=== PATIENT | female | born 1985 | race Hispanic/Latino ===

== ENCOUNTER 2019-04-18 15:36 | Emergency (ER) | payer SELFPAY ==
[2019-04-18] MEDS ORDERED: LIDOCAINE 1% W/EPI 1:100,000 MDV 50 ML VIAL ONE (17:18)
[2019-04-18] MEDS ORDERED: TETANUS & DIPHTHERIA TOX,ADULT 0.5 ML VIAL ONE (17:18)
[2019-04-18] MEDS ORDERED: BUPIVACAINE 0.5% PF 10 ML VIAL ONE (17:18)
--- NOTE | 2019-04-18 18:01 | ER ---
Nurse's Notes [facility] Name: Zoie Gentile Age: 33 yrs Sex: Female : 1985 Arrival Date: 04/18/2019 Time: 15:39 Bed 26 Private MD: Diagnosis: Laceration without foreign body of right forearm Presentation: 04/18 15:59 Presenting complaint: Patient states: laceration to R arm, with a blade. Transition of care: patient was not received from another setting of care. Complicating Factors: There are no complicating factors for this patient. 15:59 Method Of Arrival: Ambulatory 15:59 Acuity: ILDA 4 aa5 16:55 Onset of symptoms was April 17, 2019. Risk Assessment: Do you want to hurt yourself or em someone else? Patient reports no desire to harm self or others. Initial Sepsis Screen: Does the patient meet any 2 criteria? No. Patient's initial sepsis screen is negative. Does the patient have a suspected source of infection? Yes: Skin breakdown/wound. Care prior to arrival: None. Triage Assessment: 16:03 General: Appears in no apparent distress. comfortable, Behavior is calm, cooperative, ch appropriate for age. Pain: Complains of pain in dorsal aspect of right forearm. 16:03 Injury Description: Laceration sustained to right arm and dorsal aspect of right ch forearm is clean, 2.6 to 7.5 cm long, bleeding moderately, was sustained occurred last night around 0300. 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 - Social history:: Smoking status: Patient uses tobacco products, smokes one-half pack cigarettes per day, Patient uses alcohol, on a daily basis. prior to arrival, 5-6 drinks. - Ebola Screening: : Patient negative for fever greater than or equal to 101.5 degrees Fahrenheit, and additional compatible Ebola Virus Disease symptoms Patient denies exposure to infectious person Patient denies travel to an Ebola-affected area in the 21 days before illness onset No symptoms or risks identified at this time. Screenin:55 Abuse screen: Denies threats or abuse. Nutritional screening: No deficits noted. em Tuberculosis screening: No symptoms or risk factors identified. Fall Risk None identified. Assessment: 16:55 General: Appears in no apparent distress. comfortable, Behavior is calm, cooperative, em Reports reports she was playing with box spring frame builder and cut her self on accident while she was drinking last night around 11pm, currently denies SI or HI, provider at bedside. Pain: Complains of pain in dorsal aspect of right forearm Pain currently is 8 out of 10 on a pain scale. Pain began. Neuro: Level of Consciousness is awake, alert, obeys commands, Oriented to person, place, time, situation. Cardiovascular: Capillary refill < 3 seconds Patient's skin is warm and dry. Respiratory: Airway is patent Respiratory effort is even, unlabored, Respiratory pattern is regular, symmetrical. Derm: Wound noted dorsal aspect of right forearm. Musculoskeletal: Capillary refill < 3 seconds, Range of motion: intact in all extremities. Injury Description: Laceration sustained to dorsal aspect of right forearm is clean, 2.6 to 7.5 cm long, bleeding moderately, was sustained 12-24 hours ago. 16:55 Reassessment: I agree with assessment completed by Juan Arevalo LVN . aa5 Vital Signs: 16:03 BP 132 / 76; Pulse 99; Resp 16; Temp 98.6; Pulse Ox 99% on R/A; Weight 95.25 kg; Height ch 5 ft. 6 in. (167.64 cm); Pain 8/10; 16:03 Body Mass Index 33.89 (95.25 kg, 167.64 cm) ED Course: 15:39 Patient arrived in ED. mr 16:03 Arm band placed on left wrist. Patient placed in an exam room. 16:46 Caleb Amezcua PA is PHCP. cp 16:46 Caleb Munoz MD is Attending Physician. cp 16:46 Karo Hodge RN is Primary Nurse. ca1 16:55 Patient has correct armband on for positive identification. Bed in low position. Call em light in reach. 17:29 Juan Arevalo LVN is Primary Nurse. em 17:30 Assist provider with laceration repair on dorsal aspect of right forearm that was em between 2.6 to 7.5 cm using sutures. Set up tray. Performed by Caleb SANTOS Dressed with 4X4s, Kerlix, Neosporin, Patient tolerated well. 17:52 Patient did not have IV access during this emergency room visit. em 18:53 Triage completed. aa5 Administered Medications: 17:10 Drug: Lidocaine-Epinephrine -1%: (1:100,000) 20 ml {Note: administered by PA. Caleb} em Volume: 20 ml; Route: Infiltration; 17:30 Follow up: Response: No adverse reaction; Pain is decreased em 17:10 Drug: Marcaine (0.5 %) 10 ml {Note: administered by PA. 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 Exp: em 01/03/2021. Lot #: [id number]. } Route: IM; Site: right deltoid; 17:45 Follow up: Response: Medication administered at discharge. em Outcome: 17:29 Discharge ordered by . 17:53 Discharged to home ambulatory. em 17:53 Condition: good 17:53 Discharge instructions given to patient, Instructed on discharge instructions, follow up and referral plans. medication usage, wound care, Demonstrated understanding of instructions, follow-up care, medications, wound care, Prescriptions given X 1. 17:53 Patient left the ED. em Signatures: Margaret Noyola, RN RN Martin, Deja Arevalo, Juan, [employer]ODU[employer] SALES REPRESENTATIVE [employer]ODU[employer] SALES REPRESENTATIVE em Adeola Romero RN RN aa5 Caleb Amezcua PA PA cp Acob, Cheryl, RN RN ca1 Corrections: (The following items were deleted from the chart) 16:04 16:03 Social history: Smoking status: Patient/guardian denies using tobacco, [facility]
--- NOTE | 2019-04-18 18:01 | EDPHYS ---
Physician Documentation [facility] Name: Zoie Gentile Age: 33 yrs Sex: Female : 1985 Arrival Date: 04/18/2019 Time: 15:39 Bed 26 Private MD: ED Physician Caleb Munoz HPI: 04/18 17:30 This 33 yrs old Female presents to ER via Ambulatory with complaints of cp Laceration To Arm. 17:30 The patient has a laceration related to: self inflicted occurred at home. cp 17:30 The laceration(s) is(are) located on the dorsal aspect of right forearm. Onset: The cp symptoms/episode began/occurred last night. Patient admits to using razor to cut herself. Denies suicidal or homicidal ideations. Admits to drinking alcohol last night prior to cutting herself. 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 - Social history:: Smoking status: Patient uses tobacco products, smokes one-half pack cigarettes per day, Patient uses alcohol, on a daily basis. prior to arrival, 5-6 drinks. - Ebola Screening: : Patient negative for fever greater than or equal to 101.5 degrees Fahrenheit, and additional compatible Ebola Virus Disease symptoms Patient denies exposure to infectious person Patient denies travel to an Ebola-affected area in the 21 days before illness onset No symptoms or risks identified at this time. ROS: 17:35 Constitutional: Negative for body aches, chills, fever, poor PO intake. cp 17:35 Cardiovascular: Negative for chest pain. cp 17:35 Respiratory: Negative for cough, shortness of breath, wheezing. 17:35 Skin: Positive for laceration(s), of the dorsal aspect of right forearm. 17:35 Neuro: Negative for altered mental status, headache, numbness, weakness. 17:35 Psych: Negative for auditory hallucinations, visual hallucinations, homicidal ideation, suicide gesture, suicidal ideation. 17:35 All other systems are negative. Exam: 17:40 Constitutional: The patient appears in no acute distress, alert, awake, well developed, cp well nourished. 17:40 Head/Face: Normocephalic, atraumatic. cp 17:40 Skin: injury, laceration(s), the wound is approximately 8 cm(s), of the dorsal aspect of right forearm, that can be described as clean, linear, with mild bleeding. Vital Signs: 16:03 BP 132 / 76; Pulse 99; Resp 16; Temp 98.6; Pulse Ox 99% on R/A; Weight 95.25 kg; Height ch 5 ft. 6 in. (167.64 cm); Pain 8/10; 16:03 Body Mass Index 33.89 (95.25 kg, 167.64 cm) ch Laceration: 17:28 Wound Repair of 8cm ( 3.1in ) subcutaneous laceration to dorsal aspect of right cp forearm. Linear shaped.. Distal neuro/vascular/tendon intact. Anesthesia: Wound infiltrated with 8 mls of Lido/Marcaine. Wound prep: Moderate cleansing by me, Wound irrigation by me. Skin closed with 5 4-0 Prolene using interrupted sutures and sterile technique. Dressed with Bacitracin, 4x4's. Patient tolerated well. MDM: 16:46 Patient medically screened. cp 17:29 Data reviewed: vital signs, nurses notes, and as a result, I will discharge patient. cp 17:29 Differential diagnosis: superficial laceration, tendon injury, vascular injury. cp Counseling: I had a detailed discussion with the patient and/or guardian regarding: the historical points, exam findings, and any diagnostic results supporting the discharge/admit diagnosis, to return to the emergency department if symptoms worsen or persist or if there are any questions or concerns that arise at home. Response to treatment: the patient's symptoms have markedly improved after treatment, and as a result, I will discharge patient. Administered Medications: 17:10 Drug: Lidocaine-Epinephrine -1%: (1:100,000) 20 ml {Note: administered by PA. Caleb} em Volume: 20 ml; Route: Infiltration; 17:30 Follow up: Response: No adverse reaction; Pain is decreased em 17:10 Drug: Marcaine (0.5 %) 10 ml {Note: administered by PA. 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 Exp: em 01/03/2021. Lot #: [id number]. } Route: IM; Site: right deltoid; 17:45 Follow up: Response: Medication administered at discharge. em Disposition: 18:00 Chart complete. cp Disposition: 04/18/19 17:29 Discharged to Home. Impression: Laceration without foreign body of right forearm. - Condition is Stable. - Discharge Instructions: Laceration Care, Adult. - Prescriptions for Keflex 500 mg Oral Capsule - take 1 capsule by ORAL route every 8 hours for 10 days; 30 capsule. - Medication Reconciliation Form, Thank You Letter, Antibiotic Education, Prescription Opioid Use form. - Follow up: Private Physician; When: 10 - 14 days; Reason: Staple/Suture removal. - Problem is new. - Symptoms have improved. Addendum: 04/22/2019 10:04 Co-signature as Attending Physician, Caleb Munoz MD I agree with the assessment and c segura plan of care. Signatures: Margaret Noyola RN RN ch Anderson, Corey, MD MD cha Munoz, Edgar, PROJECT MANAGER INDUSTRIAL PROJECT MANAGER INDUSTRIAL em Page, Caleb, PA PA cp Corrections: (The following items were deleted from the chart) 04/18 16:04 16:03 Social history: Smoking status: Patient/guardian denies using tobacco, [facility] 17:53 17:29 04/18/2019 17:29 Discharged to Home. Impression: Laceration without foreign body em of right forearm. Condition is Stable. Forms are Medication Reconciliation Form, Thank You Letter, Antibiotic Education, Prescription Opioid Use. Follow up: Private Physician; When: 10 - 14 days; Reason: Staple/Suture removal. Problem is new. Symptoms have improved. cp 04/19 15:13 04/18 16:20 Skin: Positive for laceration(s), of the dorsal aspect of right forearm, cp cp 04/19 15:04/18 16:20 Neuro: Negative for altered mental status, headache, weakness, cp cp 04/19 15:13 04/18 16:20 Psych: Negative for auditory hallucinations, visual hallucinations, cp homicidal ideation, suicide gesture, suicidal ideation, cp 04/19 15:13 04/18 16:20 Constitutional: Negative for body aches, chills, fever, poor PO intake, cp cp 04/19 15:13 06 16:20 All other systems are negative, cp cp
== END 2019-04-18 17:53 | disposition home or self-care (01) ==
LOC: ER 15:36
PROC: 0JQG0ZZ Repair Right Lower Arm Subcutaneous Tissue and Fascia, Open Approach (ICD-10-PCS; principal; 2019-04-18)
DX: S51.811A Laceration without foreign body of right forearm, initial encounter (principal); X78.8XXA Intentional self-harm by other sharp object, initial encounter; Y92.009 Unspecified place in unspecified non-institutional (private) residence as the place of occurrence of the external cause; F17.210 Nicotine dependence, cigarettes, uncomplicated
CPT/HCPCS: 90471; 90714; 99283